=== PATIENT | female | born 1970 | race Hispanic/Latino ===

== ENCOUNTER 2018-09-07 12:06 | Inpatient (IN) | payer OTHER ==
[~2018-09-07] VITALS: Ht 160 cm; Wt 87.4 kg
[2018-09-07] MEDS ORDERED: ACETAMINOPHEN EXTRA STRENGTH 500 MG TABLET ONE (12:52)
[2018-09-07 12:58] LABS: BASOPHILS % (AUTO) 0.3 % (0.0-5.0); EOSINOPHILS % (AUTO) 0.1 % (0.0-8.0); HEMATOCRIT 44.4 % (36-48); LYMPHOCYTES % (AUTO) 8.4 % (21.0-51.0); MEAN CORPUSCULAR HEMOGLOBIN 28.9 pg (27.0-33.0); MEAN CORPUSCULAR HGB CONC 33.1 g/dL (32.0-36.0); MEAN CORPUSCULAR VOLUME 87.1 fL (79-99); NEUTROPHILS % (AUTO) 82.2 % (40.0-77.0); NUCLEATED RED BLOOD CELLS 0.1 % (0.0-0.19); PLATELET COUNT (AUTO) 255 K/uL (130-400); RED CELL DISTRIBUTION WIDTH 14.9 % (11.0-15.5); WHITE BLOOD COUNT (AUTO) 20.3 K/uL (4.8-10.8)
[2018-09-07] MEDS ORDERED: SODIUM CHLORIDE 0.9% 1000ML 1,000 ML IV ONE ×3 (13:11→20:53)
[2018-09-07 13:40] LABS: CREATININE 1.2 mg/dL (0.5-1.5); POTASSIUM 3.3 mmol/L (3.5-5.1)
[2018-09-07 13:45] LABS: BILIRUBIN,TOTAL 1.5 mg/dL (0.2-1.0); TOTAL PROTEIN, SERUM 7.7 g/dL (6.0-8.3)
[2018-09-07] MEDS ORDERED: SODIUM CHLORIDE 0.9% 50 ML IV ONE (15:37)
[2018-09-07] MEDS ORDERED: ZOSYN 3.375GM+NS 50ML 50 ML IV ONE (15:37)
[2018-09-07 15:41] LABS: APPEARANCE,URINE CLOUDY (CLEAR); BILIRUBIN,URINE NEGATIVE (NEGATIVE); COLOR,URINE YELLOW (YELLOW); GLUCOSE, URINE (UA) NEGATIVE (NEGATIVE); KETONES,URINE NEGATIVE (NEGATIVE); LEUKOCYTE ESTERASE ,URINE MODERATE (NEGATIVE); NITRATE,URINE POSITIVE (NEGATIVE); OCCULT BLOOD,URINE TRACE-LYSED (NEGATIVE); PROTEIN,URINE TRACE (NEGATIVE); UROBILINOGEN,URINE 0.2 mg/dL (0.2-1.0)
[2018-09-07 15:55] LABS: BACTERIA,URINE Moderate /HPF (None Seen); SQUAMOUS EPITHELIAL CELL,UR Moderate /HPF (0-2)
[2018-09-07 15:56] LABS: MUCUS,URINE Moderate LPF (None Seen)
[2018-09-07 15:59] LABS: YEAST,URINE BUDDING Rare /HPF (None Seen)
[2018-09-07] MEDS ORDERED: PANTOPRAZOLE SODIUM 40 MG TABLET.DR PO ONE (18:31)
[2018-09-07] MEDS ORDERED: ONDANSETRON HCL 4 MG/2 ML VIAL ONE (20:53)
[2018-09-08] MEDS ORDERED: ZOSYN 3.375GM+NS 50ML 50 ML IV ONE ×3 (02:17→17:58)
[2018-09-08] MEDS ORDERED: SODIUM CHLORIDE 0.9% 100 ML IV ONE (02:18)
[2018-09-08] MEDS ORDERED: ACETAMINOPHEN 325 MG TAB ONE ×2 (04:19→11:41)
[2018-09-08 06:43] LABS: BASOPHILS % (AUTO) 0.2 % (0.0-5.0); EOSINOPHILS % (AUTO) 0.1 % (0.0-8.0); HEMATOCRIT 34.6 % (36-48); LYMPHOCYTES % (AUTO) 9.3 % (21.0-51.0); MEAN CORPUSCULAR HEMOGLOBIN 29.7 pg (27.0-33.0); MEAN CORPUSCULAR VOLUME 87.3 fL (79-99); MONOCYTES % (AUTO) 9.9 % (3.0-13.0); NEUTROPHILS % (AUTO) 80.5 % (40.0-77.0); PLATELET COUNT (AUTO) 200 K/uL (130-400); RED BLOOD CELL COUNT(AUTO) 3.96 MIL/uL (4.00-5.50); RED CELL DISTRIBUTION WIDTH 15.1 % (11.0-15.5); WHITE BLOOD COUNT (AUTO) 9.7 K/uL (4.8-10.8)
[2018-09-08 07:06] LABS: ALBUMIN 2.3 g/dL (3.5-5.0); CREATININE 1.1 mg/dL (0.5-1.5); THYROID STIMULATING HORMONE 0.75 uIU/mL (0.36-3.74); TOTAL PROTEIN, SERUM 6.4 g/dL (6.0-8.3)
[2018-09-08 07:14] LABS: POTASSIUM 2.8 mmol/L (3.5-5.1)
[2018-09-08] MEDS ORDERED: POTASSIUM CHLORIDE 20 MEQ ERTAB PO ONE ×4 (08:06→13:44)
[2018-09-08] MEDS ORDERED: PANTOPRAZOLE SODIUM 40 MG TABLET.DR PO ONE (08:07)
[2018-09-08] MEDS ORDERED: ENOXAPARIN SODIUM 40 MG/0.4 ML SYRINGE SQ ONE (08:07)
[2018-09-08] MEDS ORDERED: POTASSIUM CHLORIDE 20MEQ/100ML 100 ML IV ONE (08:07)
[2018-09-08] MEDS ORDERED: SODIUM CHLORIDE 0.9% 50 ML IV ONE ×2 (10:33→17:59)
[2018-09-08] MEDS ORDERED: POTASSIUM CHLORIDE 10% ELIXIR 20 MEQ/15 ML UDCUP PO PRN (20:00)
[2018-09-08] MEDS ORDERED: SODIUM CHLORIDE 0.9% 1000ML 1,000 ML IV SCH (20:00)
[2018-09-08] MEDS ORDERED: POTASSIUM CHLORIDE 20 MEQ ERTAB PO PRN (20:00)
[2018-09-08] MEDS ORDERED: LIDOCAINE HCL-MPF 1% 2ML VIAL IJ PRN (20:00)
[2018-09-08] MEDS ORDERED: POTASSIUM CHLORIDE 20MEQ/100ML 100 ML IV PRN (20:00)
[2018-09-08] MEDS ORDERED: ONDANSETRON HCL 4 MG/2 ML VIAL IVP PRN (20:00)
[2018-09-08 20:06] VITALS: BP 134/71
[2018-09-08] MEDS: ACETAMINOPHEN 325 MG TAB PO PRN (20:46)
[2018-09-08 23:46] VITALS: BP 143/71
[2018-09-09] MEDS: ZOSYN 3.375GM+NS 50ML 50 ML IV SCH ×3 (01:19→17:26)
[2018-09-09 03:45] VITALS: BP 128/50
[2018-09-09 04:31] LABS: ALBUMIN 2.5 g/dL (3.5-5.0); BILIRUBIN,TOTAL 0.5 mg/dL (0.2-1.0); CREATININE 0.8 mg/dL (0.5-1.5); MAGNESIUM 1.7 mg/dL (1.80-2.40); PHOSPHORUS 1.9 mg/dL (2.5-4.9); POTASSIUM 3.6 mmol/L (3.5-5.1); THYROID STIMULATING HORMONE 2.9 uIU/mL (0.36-3.74)
[2018-09-09] MEDS: PANTOPRAZOLE SODIUM 40 MG TABLET.DR PO SCH (08:09)
[2018-09-09] MEDS: ENOXAPARIN SODIUM 40 MG/0.4 ML SYRINGE SQ SCH (08:10)
[2018-09-09 08:12] VITALS: BP 115/53
[2018-09-09 12:09] VITALS: BP 109/65
[2018-09-09] MEDS ORDERED: MAGNESIUM 2GM PREMIX 50ML 50 ML IV SCH (14:00)
[2018-09-09] MEDS: ACETAMINOPHEN 325 MG TAB PO PRN (15:28)
[2018-09-09 16:41] VITALS: BP 124/65
[2018-09-09 20:00] VITALS: BP 126/71
[2018-09-09 23:00] VITALS: BP 128/78
[2018-09-10] MEDS: ZOSYN 3.375GM+NS 50ML 50 ML IV SCH ×2 (00:14→10:29)
[2018-09-10 03:00] VITALS: BP 111/62
[2018-09-10 03:54] LABS: HEMATOCRIT 34.7 % (36-48); MEAN CORPUSCULAR HEMOGLOBIN 29.3 pg (27.0-33.0); MEAN CORPUSCULAR HGB CONC 33.4 g/dL (32.0-36.0); MEAN CORPUSCULAR VOLUME 87.6 fL (79-99); PLATELET COUNT (AUTO) 249 K/uL (130-400); RED BLOOD CELL COUNT(AUTO) 3.96 MIL/uL (4.00-5.50); RED CELL DISTRIBUTION WIDTH 15.2 % (11.0-15.5); WHITE BLOOD COUNT (AUTO) 4.6 K/uL (4.8-10.8)
[2018-09-10 04:23] LABS: CREATININE 0.9 mg/dL (0.5-1.5); MAGNESIUM 2.3 mg/dL (1.80-2.40); POTASSIUM 3.6 mmol/L (3.5-5.1)
[2018-09-10 07:41] VITALS: BP 139/71
[2018-09-10] MEDS: PANTOPRAZOLE SODIUM 40 MG TABLET.DR PO SCH (10:28)
[2018-09-10] MEDS: ENOXAPARIN SODIUM 40 MG/0.4 ML SYRINGE SQ SCH (10:29)
[2018-09-10 11:38] VITALS: BP 114/74
[2018-09-10 16:19] VITALS: BP 129/77
== END 2018-09-10 17:10 | disposition home or self-care (01) | DRG 720 ==
LOC: EDH 12:06 → EDHIP 18:15 → 2AH 09-08 19:15
PROVIDERS: ADMIT Internal Medicine Nephrology; ATTEND Internal Medicine Nephrology
DX: A41.9 Sepsis, unspecified organism (principal); E87.1 Hypo-osmolality and hyponatremia; D64.9 Anemia, unspecified; E87.6 Hypokalemia; I10 Essential (primary) hypertension; N39.0 Urinary tract infection, site not specified; N28.9 Disorder of kidney and ureter, unspecified; E66.9 Obesity, unspecified; Z87.74 Personal history of (corrected) congenital malformations of heart and circulatory system; Z87.81 Personal history of (healed) traumatic fracture; Z68.34 Body mass index [BMI] 34.0-34.9, adult; Q21.1 Atrial septal defect
CPT/HCPCS: 36415; 80048; 80053; 81001; 83605; 83735; 84100; 84443; 85025; 85027; 87040; 87804; J1650; J2405; J2543; J3475; J3480; J7030

== ENCOUNTER → 2019-03-01 | Outpatient (CLI) | payer OTHER | END | disposition home or self-care (01) | LOC: OIH 09:08 | PROVIDERS: ATTEND Internal Medicine | DX: M16.12 Unilateral primary osteoarthritis, left hip (principal); M47.816 Spondylosis without myelopathy or radiculopathy, lumbar region; M25.752 Osteophyte, left hip; G62.9 Polyneuropathy, unspecified | CPT/HCPCS: 72100; 73502; 73560 ==